=== PATIENT | male | born 1975 | race Caucasian/White ===

== ENCOUNTER → 2016-12-03 | Day surgery (SDC) | payer BC ==
[~2016-12-03] MED LIST: PHENTERMINE H37.5 M1 PO; PRINIVIL10 MG PO
--- NOTE | ~2016-12-03 | OR ---
Unit #: [id number] #: [id number] Patient: LEON RUCKER III [id number] [address] [place], [place] [address] [id number] O MR#: [id number] NAME: LEON RUCKER III ROOM: Date of Procedure: 12/03/2016 Admission Date: 12/03/2016 Surgeon: Antonio Guerrier M.D. : 1975 Attending Physician: Antonio Guerrier M.D. Referring Physician: Antonio Guerrier M.D. OPERATIVE REPORT PREOPERATIVE DIAGNOSES 1. Right groin bulge, possible recurrent hernia. 2. Left testicular pain. POSTOPERATIVE DIAGNOSES 1. Intermittent adhesions, pelvis. 2. No evidence of right or left inguinal hernia. PROCEDURE PERFORMED Diagnostic laparoscopy. ANESTHESIA General anesthesia. ESTIMATED BLOOD LOSS Minimal. IV FLUIDS 800 crystalloid. COMPLICATIONS None. INDICATIONS FOR PROCEDURE The patient is a 41-year-old gentleman with a complex history in his groins. He has had an open repair bilateral and then a subsequent what was thought to be recurrence and laparoscopic repair preperitoneal. He presents with a bulge in his right groin on examination and intermittent testicular pain on the left. Recent CT scan shows what appears to be a fat containing recurrent inguinal hernia on the right side. DESCRIPTION OF PROCEDURE The patient was taken to the operating theater and placed in a supine position. General anesthesia was induced. His abdomen was prepped and draped. A 5-mm Optiview trocar was placed in the left upper quadrant without difficulty. The abdomen was insufflated to 15 mmHg with CO2. The patient was placed in Trendelenburg. I was able to observe the entire right groin. I did not see any evidence of recurrent hernia. I identified the cord and indirect spaces nicely. You could see the preperitoneal mesh in good position with no evidence of any violation. I did not see a direct component, obturator component, nor femoral component. Attention was then focused to the left groin, which also Unit #: [id number] #: [id number] Patient: LEON RUCKER III appeared normal. There were some scar tissue to the mesh. I left this alone. I saw no other abnormalities. Ports were removed and the wound was closed with 4-0 Vicryl. The patient tolerated the procedure well and sent to the recovery room. Dictated by... Jose Carlos Hernandez/pasha TD: 12/03/2016 11:16 JOB #: [id number] OPERATIVE REPORT X Antonio Guerrier MD X PROCEDURE OPERATIVE NOTE
== END | disposition home or self-care (01) ==
LOC: CSUR 05:42
DX: K66.0 Peritoneal adhesions (postprocedural) (postinfection) (principal); N50.812 Left testicular pain; R10.32 Left lower quadrant pain; R10.31 Right lower quadrant pain; Z98.890 Other specified postprocedural states; I10 Essential (primary) hypertension; G47.30 Sleep apnea, unspecified; Z91.19 Patient's noncompliance with other medical treatment and regimen
CPT/HCPCS: J0131; J0330; J0690; J1644; J1885; J2250; J2405; J2710; J3010